=== PATIENT | female | born 1945 | race Caucasian/White ===

== ENCOUNTER 2022-05-26 08:16 | Day surgery (SDC) | payer MEDICARE, BC ==
[~2022-05-26] VITALS: Ht 167.6 cm; Wt 82.7 kg
[2022-05-26 08:27] VITALS: BP 167/76
[2022-05-26] MEDS ORDERED: ASPI-1265 PO (09:04)
[2022-05-26] MEDS ORDERED: OMEG-133 PO (09:05)
[2022-05-26] MEDS ORDERED: DIPH25CA83 PO (09:06)
[2022-05-26] MEDS ORDERED: QUIN10TA35 PO (09:06)
[2022-05-26] MEDS ORDERED: LEVO50TA PO (09:07)
[2022-05-26] MEDS ORDERED: ROSU40TA PO (09:08)
[2022-05-26] MEDS ORDERED: ZET10T PO (09:09)
[2022-05-26] MEDS ORDERED: ESOM40CA49 PO (09:09)
[2022-05-26] MEDS ORDERED: HYOS-13 PO (09:10)
[2022-05-26] MEDS ORDERED: ZINC100T2 PO (09:11)
[2022-05-26] MEDS ORDERED: CHOL400T57 PO (09:13)
[2022-05-26] MEDS ORDERED: MULT-1085 PO (09:13)
[2022-05-26] MEDS ORDERED: VITA1CAP PO (09:13)
[2022-05-26] MEDS ORDERED: MIDAZolam 1 MG/ML 5ML VIAL ONE (09:33)
[2022-05-26] MEDS ORDERED: fentaNYL/PF 50MCG/1 ML 2ML syringe ONE (09:33)
[2022-05-26] MEDS ORDERED: LIDOcaine Viscous 15ml cup ONE (09:34)
[2022-05-26 10:01] VITALS: BP 142/79
[2022-05-26 10:11] VITALS: BP 144/73
[2022-05-26 10:16] VITALS: BP 147/77
[2022-05-26 10:21] VITALS: BP 150/72
== END 2022-05-26 10:26 | disposition home or self-care (01) ==
LOC: GI LAB 08:16
PROVIDERS: ATTEND Internal Medicine Gastroenterology
DX: K22.2 Esophageal obstruction (principal); K29.70 Gastritis, unspecified, without bleeding; K31.89 Other diseases of stomach and duodenum; K44.9 Diaphragmatic hernia without obstruction or gangrene
CPT/HCPCS: 43239; 43450; J2250; J3010; J7030; Z7512; 43233; 88305; 99152; A4620

== ENCOUNTER 2023-05-22 12:30 | Inpatient (IN) | payer MEDICARE, BC ==
[~2023-05-22] VITALS: Ht 167.6 cm; Wt 85.9 kg
[~2023-05-22 12:30] MED LIST: ASPI-1265 PO; CHOL400T57 PO; DIPH25CA83 PO; ESOM40CA49 PO; EZET10TA7 PO; HYOS-13 PO; LEVO50TA PO; MULT-1085 PO; OMEG-133 PO; QUIN10TA35 PO; ROSU40TA PO; VITA1CAP PO; ZINC100T2 PO
--- NOTE | 2023-05-22 13:15 | NUR ---
P.A. NOTIFIED THAT PT WAS PLACED IN RM 17 @1315 AND NEEDS MSE. STERRAS
[2023-05-22 13:34] LABS: BASOPHILS % (AUTO) 0.5 % (0-1); EOSINOPHILS # (AUTO) 0.1 X10'3 (0-0.9); HEMATOCRIT 41.7 % (35.0-45.0); HEMOGLOBIN 13.9 g/dl (12.0-16.0); LYMPHOCYTES # (AUTO) 1.8 X10'3 (1.1-4.8); LYMPHOCYTES % (AUTO) 22.4 % (21-51); MEAN CORPUSCULAR HGB CONC 33.5 g/dL (33.0-36.5); MEAN CORPUSCULAR VOLUME 92.6 FL (78-98); MEAN PLATELET VOLUME 9.2 FL (7.4-10.4); MONOCYTES # (AUTO) 0.6 X10'3 (0-0.9); MONOCYTES % (AUTO) 7.2 % (2-12); NEUTROPHILS # (AUTO) 5.4 X10'3 (1.8-7.7); NEUTROPHILS % (AUTO) 68.9 % (42-75); PLATELET COUNT 314 X10'3 (140-440); RED CELL DISTRIBUTION WIDTH 13.5 % (11.5-14.5); WHITE BLOOD COUNT 7.8 X10'3 (4.5-11.0)
[2023-05-22 13:48] LABS: APTT 27 SECONDS (22-32); PROTHROMBIN TIME 10.8 SECONDS (9.0-12.0)
[2023-05-22 13:49] LABS: ALANINE AMINOTRANSFERASE 25 U/L (12-78); ALBUMIN 3.9 G/DL (3.4-5.0); ALBUMIN/GLOBULIN RATIO 1.2 (1.1-1.5); ALKALINE PHOSPHATASE 84 IU/L (46-116); ANION GAP 10 (8-16); ASPARTATE AMINO TRANSFERASE 15 U/L (10-37); BILIRUBIN,TOTAL 0.6 MG/DL (0.1-1.0); BLOOD UREA NITROGEN 23 MG/DL (7-18); BUN/CREATININE RATIO 29.1 (10.0-20.0); CALCIUM 9.6 MG/DL (8.5-10.1); CHLORIDE 107 MMOL/L (99-107); CREATININE 0.79 MG/DL (0.40-0.90); GLUCOSE 123 MG/DL (70-104); POTASSIUM 3.7 MMOL/L (3.5-5.1); SODIUM 141 MMOL/L (135-145); TOTAL CARBON DIOXIDE 24.5 MMOL/L (24-32); TOTAL PROTEIN 7.2 G/DL (6.4-8.2); eCRCL 55 ML/MIN; eGFR 70 ML/MIN
[2023-05-22] MEDS ORDERED: aspirin 81mg tab.chew PO ONE (14:15)
[2023-05-22] MEDS ORDERED: clopidogrel 300mg tablet PO ONE (14:15)
[2023-05-22] MEDS ORDERED: iohexol 350MG/ML 100ml bottle IV ONE (14:21)
[2023-05-22] MEDS ORDERED: mag hydrox/Alum hydrox/simeth 30ml oral suspension PO PRN (15:20)
[2023-05-22] MEDS ORDERED: morphine 2 MG/ML inj. syringe IV PRN (15:20)
[2023-05-22] MEDS ORDERED: ondansetron/PF 4mg/2ml inj IV PRN (15:20)
[2023-05-22] MEDS ORDERED: magnesium hydroxide 30ml (MOM) UD suspension PO PRN (15:20)
[2023-05-22] MEDS ORDERED: labetalol 20mg/4ml (5mg/ml) syringe IV ONE (15:30)
[2023-05-22 15:49] LABS: CHOLESTEROL 150 MG/DL (0-200); HDL CHOLESTEROL 50 MG/DL (35-60); LDL CHOLESTEROL 76 MG/DL (50-100); PRO BRAIN NATRIURETIC PEPTIDE 107 PG/ML (0-450); TRIGLYCERIDES 175 MG/DL (20-135)
[2023-05-22 17:10] LABS: BILIRUBIN,URINE NEGATIVE (Neg); CLARITY,URINE CLEAR (Clear); COLOR,URINE YELLOW (Yellow); GLUCOSE, URINE NEGATIVE (Neg); KETONES,URINE NEGATIVE (Neg); LEUKOCYTE ESTERASE ,URINE NEGATIVE (Neg); NITRITES, URINE NEGATIVE (Neg); OCCULT BLOOD,URINE TRACE-INTACT (Neg); PROTEIN,URINE NEGATIVE (Neg); UROBILINOGEN,URINE 0.2 E.U/dL (0.2-1.0)
[2023-05-22 17:13] LABS: UA COLLECTION TYPE CLN CATCH MIDSTREAM
[2023-05-22 17:14] LABS: BACTERIA,URINE NONE SEEN /HPF (Neg); MUCUS STRANDS NONE SEEN /LPF (Neg); RBC,URINE 0-2 /HPF (0-2); SQUAMOUS EPITHELIAL CELL,UR FEW /LPF (FEW); WBC,URINE NONE SEEN /HPF (0-4)
[2023-05-22 19:30] VITALS: BP 232/95; PULSE 79; RESP 10; TEMP 97.4; O2SAT 97
[2023-05-22 19:40] VITALS: BP 225/94
[2023-05-22 20:10] VITALS: BP 188/92
[2023-05-22] MEDS: docusate sod 100mg capsule PO SCH (21:00)
[2023-05-22 22:00] VITALS: BP 204/69; PULSE 75; RESP 15; TEMP 98.2; O2SAT 97
[2023-05-22] MEDS ORDERED: labetalol 20mg/4ml (5mg/ml) syringe IV PRN (22:30)
[2023-05-22] MEDS ORDERED: Melatonin 3mg tablet PO PRN (22:30)
[2023-05-23] VITALS (10 sets, daily range): BP systolic 170–222; BP diastolic 71–100; PULSE 77–90; RESP 14–16; TEMP 97.9–98.3; O2SAT 87–96
--- NOTE | 2023-05-23 06:07 | NUR ---
Patient in room ORTHO 4015. I have received report from Kimberly RN and had the opportunity to ask questions and assume patient care.
[2023-05-23 06:38] LABS: BASOPHILS % (AUTO) 0.6 % (0-1); EOSINOPHILS % (AUTO) 0.7 % (0-6); HEMATOCRIT 38.8 % (35.0-45.0); HEMOGLOBIN 13.1 g/dl (12.0-16.0); LYMPHOCYTES # (AUTO) 1.8 X10'3 (1.1-4.8); LYMPHOCYTES % (AUTO) 27.5 % (21-51); MEAN CORPUSCULAR HEMOGLOBIN 31.4 PG (27.0-31.0); MEAN CORPUSCULAR HGB CONC 33.8 g/dL (33.0-36.5); MEAN CORPUSCULAR VOLUME 92.9 FL (78-98); MEAN PLATELET VOLUME 9.1 FL (7.4-10.4); MONOCYTES # (AUTO) 0.5 X10'3 (0-0.9); MONOCYTES % (AUTO) 7.1 % (2-12); NEUTROPHILS # (AUTO) 4.1 X10'3 (1.8-7.7); NEUTROPHILS % (AUTO) 64.1 % (42-75); PLATELET COUNT 291 X10'3 (140-440); RED BLOOD COUNT 4.18 X10'6 (4.20-5.60); RED CELL DISTRIBUTION WIDTH 13.4 % (11.5-14.5); WHITE BLOOD COUNT 6.4 X10'3 (4.5-11.0)
[2023-05-23 07:07] LABS: ALBUMIN 3.6 G/DL (3.4-5.0); ANION GAP 10 (8-16); BLOOD UREA NITROGEN 13 MG/DL (7-18); BUN/CREATININE RATIO 17.8 (10.0-20.0); CALCIUM 9.4 MG/DL (8.5-10.1); CHLORIDE 106 MMOL/L (99-107); CREATININE 0.73 MG/DL (0.40-0.90); GLUCOSE 106 MG/DL (70-104); POTASSIUM 3.6 MMOL/L (3.5-5.1); SODIUM 142 MMOL/L (135-145); TOTAL CARBON DIOXIDE 26.4 MMOL/L (24-32); eCRCL 59 ML/MIN; eGFR 77 ML/MIN
[2023-05-23] MEDS: levoTHYROXINE 25mcg tablet PO SCH (07:17)
[2023-05-23] MEDS: docusate sod 100mg capsule PO SCH ×2 (07:17→20:34)
[2023-05-23] MEDS: ROSUVASTATIN CALCIUM 5 MG TABLET PO SCH (07:17)
[2023-05-23] MEDS: aspirin 81mg, enteric-coated 1 TAB TABLET.DR PO SCH (07:17)
[2023-05-23] MEDS: pantoprazole 40mg Tablet.DR PO SCH (07:17)
[2023-05-23] MEDS: ezetimibe 10mg tablet PO SCH (07:18)
[2023-05-23] MEDS: enoxaparin 40mg/0.4ml syringe SUBCUT SCH (07:19)
[2023-05-23] MEDS ORDERED: FLU VACC QS2023-24(6MOS UP)/PF 60 MCG/0.5 ML SYRINGE IM ONE (10:00)
[2023-05-23 12:07] LABS: HEMOGLOBIN A1C 5.5 % (4.5-6.2)
[2023-05-23] MEDS: clopidogrel 75mg tablet PO SCH (12:08)
[2023-05-23] MEDS: normal saline 1000ml 1,000 ML IV SCH (12:09)
--- NOTE | 2023-05-23 14:53 | NUR ---
Student documentation: I have reviewed and agree with assessments performed and documented by FAB Castano. Addendum: 05/23/23 at 1454 by Yvonne Hayes RN did not mean to have student documentation on this note Addendum: 05/23/23 at 1455 by Yvonne Hayes RN note not corrected without "student documentation"
--- NOTE | 2023-05-23 14:56 | NUR ---
FAB documentation: I have reviewed and agree with the physical assessment performed and documented by FAB Castano and relinquish all care to FAB Castano.
[2023-05-23] MEDS ORDERED: CHOL10008 PO (15:41)
[2023-05-23] MEDS ORDERED: MULT-969 PO (15:41)
[2023-05-23] MEDS ORDERED: ZINC100T2 PO (15:41)
[2023-05-23] MEDS ORDERED: CYAN250010 PO (15:41)
[2023-05-23] MEDS ORDERED: MAGN400C PO (15:46)
[2023-05-23] MEDS ORDERED: DILT-91 PO (15:46)
--- NOTE | 2023-05-23 17:37 | NUR ---
Patient is charging her phone at the nurses station
[2023-05-23] MEDS ORDERED: hydrALAZINE 20mg/ml inj. IV ONE (18:20)
--- NOTE | 2023-05-23 18:20 | NUR ---
Patient bp is 222/[address] Nix Resident. Unable to give labetalol on this floor. I advised Dr. Nix about this. Dr. Nix states that he is unable to get ahold of Dr. Juarez and has educational technology specialist on this. He is ordering a 1x dose of hydralize 25mg IV. He is putting the order in.
--- NOTE | 2023-05-23 18:41 | NUR ---
Problems reprioritized. Patient report given, questions answered & plan of care reviewed with Ivon SARGENT.
--- NOTE | 2023-05-23 18:50 | NUR ---
Patient in room ORTHO 4015. I have received report from FAB Blanco and had the opportunity to ask questions and assume patient care.
[2023-05-24 02:00] VITALS: BP 174/74; PULSE 74; RESP 16; TEMP 98; O2SAT 94
[2023-05-24 06:00] VITALS: BP 153/67; PULSE 76; RESP 14; TEMP 97.9; O2SAT 96
--- NOTE | 2023-05-24 06:20 | NUR ---
Patient in room ORTHO 4015. I have received report from Ivon Fairchild and had the opportunity to ask questions and assume patient care.
--- NOTE | 2023-05-24 06:34 | NUR ---
Problems reprioritized. Patient report given, questions answered & plan of care reviewed with ARIE Lamb.
[2023-05-24 06:49] LABS: BASOPHILS % (AUTO) 0.5 % (0-1); EOSINOPHILS # (AUTO) 0.1 X10'3 (0-0.9); EOSINOPHILS % (AUTO) 1.6 % (0-6); HEMATOCRIT 41.1 % (35.0-45.0); HEMOGLOBIN 13.7 g/dl (12.0-16.0); LYMPHOCYTES # (AUTO) 1.5 X10'3 (1.1-4.8); LYMPHOCYTES % (AUTO) 25.5 % (21-51); MEAN CORPUSCULAR HGB CONC 33.4 g/dL (33.0-36.5); MEAN CORPUSCULAR VOLUME 92.8 FL (78-98); MEAN PLATELET VOLUME 9.1 FL (7.4-10.4); MONOCYTES # (AUTO) 0.4 X10'3 (0-0.9); MONOCYTES % (AUTO) 7.5 % (2-12); NEUTROPHILS # (AUTO) 3.8 X10'3 (1.8-7.7); NEUTROPHILS % (AUTO) 64.9 % (42-75); PLATELET COUNT 275 X10'3 (140-440); RED BLOOD COUNT 4.43 X10'6 (4.20-5.60); RED CELL DISTRIBUTION WIDTH 13.6 % (11.5-14.5); WHITE BLOOD COUNT 5.9 X10'3 (4.5-11.0)
[2023-05-24 07:05] LABS: ALBUMIN 3.6 G/DL (3.4-5.0); ANION GAP 10 (8-16); BLOOD UREA NITROGEN 13 MG/DL (7-18); BUN/CREATININE RATIO 16.9 (10.0-20.0); CALCIUM 9.5 MG/DL (8.5-10.1); CHLORIDE 107 MMOL/L (99-107); CREATININE 0.77 MG/DL (0.40-0.90); GLUCOSE 109 MG/DL (70-104); POTASSIUM 3.7 MMOL/L (3.5-5.1); SODIUM 141 MMOL/L (135-145); TOTAL CARBON DIOXIDE 23.9 MMOL/L (24-32); eCRCL 56 ML/MIN; eGFR 73 ML/MIN
[2023-05-24 07:44] VITALS: RESP 14; O2SAT 96
[2023-05-24] MEDS: normal saline 1000ml 1,000 ML IV SCH (08:00)
[2023-05-24] MEDS: docusate sod 100mg capsule PO SCH (08:14)
[2023-05-24] MEDS: levoTHYROXINE 25mcg tablet PO SCH (08:14)
[2023-05-24] MEDS: pantoprazole 40mg Tablet.DR PO SCH (08:14)
[2023-05-24] MEDS: clopidogrel 75mg tablet PO SCH (08:15)
[2023-05-24] MEDS: ROSUVASTATIN CALCIUM 5 MG TABLET PO SCH (08:15)
[2023-05-24] MEDS: aspirin 81mg, enteric-coated 1 TAB TABLET.DR PO SCH (08:15)
[2023-05-24] MEDS: enoxaparin 40mg/0.4ml syringe SUBCUT SCH (08:32)
[2023-05-24] MEDS: ezetimibe 10mg tablet PO SCH (08:32)
[2023-05-24 10:00] VITALS: BP 184/99; PULSE 82; RESP 18; TEMP 97.4; O2SAT 94
[2023-05-24] MEDS ORDERED: CLOP75TA34 PO (10:27)
[2023-05-24] MEDS ORDERED: ATOR20TA66 PO (10:27)
[2023-05-24] MEDS ORDERED: ASPI-1071 PO (10:27)
--- NOTE | 2023-05-24 11:30 | NUR ---
Reviewed discharge instructions and medications with patient. Patient verbalized understanding. Patient independently dressed herself and gathered her belongings. Patient phoned her to pick her up. Patient was wheeled downstairs to be driven home by her .
== END 2023-05-24 12:45 | disposition home or self-care (01) | DRG 65 ==
LOC: ER 12:31 → ED HOLD 15:22 → ORTHO 4S 19:08
PROVIDERS: ADMIT Internal Medicine; ATTEND Internal Medicine
DX: I63.9 Cerebral infarction, unspecified (principal); N17.9 Acute kidney failure, unspecified; E03.9 Hypothyroidism, unspecified; E78.00 Pure hypercholesterolemia, unspecified; E78.5 Hyperlipidemia, unspecified; Z90.710 Acquired absence of both cervix and uterus; Z79.899 Other long term (current) drug therapy; Z88.2 Allergy status to sulfonamides; Z88.5 Allergy status to narcotic agent; Z90.49 Acquired absence of other specified parts of digestive tract
CPT/HCPCS: 36415; 70450; 70496; 70498; 70551; 71045; 80048; 80053; 80061; 81001; 83036; 83880; 85025; 85610; 85651; 85730; 87081; 93306; 97110; 97161; 97530; 99285; A6402; G0378; J1650; J3490; J7030; Q9967

== ENCOUNTER 2023-06-02 09:28 | Emergency (ER) | payer MEDICARE, BC ==
[~2023-06-02] VITALS: Ht 167.6 cm; Wt 85.6 kg
[~2023-06-02 09:28] MED LIST changes: +ASPI-1071 PO; -ASPI-1265 PO; +ATOR20TA66 PO; +CHOL10008 PO; -CHOL400T57 PO; +CLOP75TA34 PO; +CYAN250010 PO; +DILT-91 PO; -DIPH25CA83 PO; -HYOS-13 PO; +MAGN400C PO; -MULT-1085 PO; +MULT-969 PO; -ROSU40TA PO; -VITA1CAP PO
[2023-06-02 09:41] VITALS: TEMP 98.7
[2023-06-02] MEDS ORDERED: ondansetron 4mg rapidly disintigrating tab PO ONE (09:50)
[2023-06-02 10:23] LABS: BASOPHILS % (AUTO) 0.2 % (0-1); EOSINOPHILS # (AUTO) 0.1 X10'3 (0-0.9); EOSINOPHILS % (AUTO) 0.6 % (0-6); HEMATOCRIT 44.3 % (35.0-45.0); HEMOGLOBIN 14.6 g/dl (12.0-16.0); LYMPHOCYTES # (AUTO) 1.3 X10'3 (1.1-4.8); LYMPHOCYTES % (AUTO) 11.2 % (21-51); MEAN CORPUSCULAR VOLUME 93.8 FL (78-98); MEAN PLATELET VOLUME 9.9 FL (7.4-10.4); MONOCYTES # (AUTO) 0.5 X10'3 (0-0.9); MONOCYTES % (AUTO) 4.5 % (2-12); NEUTROPHILS # (AUTO) 9.9 X10'3 (1.8-7.7); NEUTROPHILS % (AUTO) 83.5 % (42-75); PLATELET COUNT 314 X10'3 (140-440); RED BLOOD COUNT 4.72 X10'6 (4.20-5.60); RED CELL DISTRIBUTION WIDTH 13.5 % (11.5-14.5); WHITE BLOOD COUNT 11.9 X10'3 (4.5-11.0)
[2023-06-02 10:40] LABS: ALANINE AMINOTRANSFERASE 14 U/L (12-78); ALBUMIN 4.1 G/DL (3.4-5.0); ALBUMIN/GLOBULIN RATIO 1.3 (1.1-1.5); ALKALINE PHOSPHATASE 86 IU/L (46-116); ANION GAP 11 (8-16); ASPARTATE AMINO TRANSFERASE 18 U/L (10-37); BILIRUBIN,TOTAL 0.6 MG/DL (0.1-1.0); BLOOD UREA NITROGEN 21 MG/DL (7-18); BUN/CREATININE RATIO 23.3 (10.0-20.0); CALCIUM 9.9 MG/DL (8.5-10.1); CHLORIDE 106 MMOL/L (99-107); GLUCOSE 121 MG/DL (70-104); LIPASE 35 U/L (16-77); POTASSIUM 4.1 MMOL/L (3.5-5.1); SODIUM 138 MMOL/L (135-145); TOTAL CARBON DIOXIDE 20.6 MMOL/L (24-32); TOTAL PROTEIN 7.2 G/DL (6.4-8.2); eCRCL 48 ML/MIN; eGFR 61 ML/MIN
[2023-06-02] MEDS ORDERED: normal saline 1000ml 1,000 ML IV ONE (10:50)
[2023-06-02] MEDS ORDERED: proCHLORperazine 10 MG/2 ml inj IV ONE (10:50)
[2023-06-02] MEDS ORDERED: morphine 4 MG/ML inj SYRINge IV ONE (10:50)
[2023-06-02] MEDS ORDERED: diphenhydrAMINE 50 mg/ml inj IV ONE (10:50)
[2023-06-02 12:34] LABS: BILIRUBIN,URINE NEGATIVE (Neg); CLARITY,URINE CLOUDY (Clear); COLOR,URINE YELLOW (Yellow); GLUCOSE, URINE NEGATIVE (Neg); KETONES,URINE 15 mg/dl (Neg); LEUKOCYTE ESTERASE ,URINE NEGATIVE (Neg); NITRITES, URINE NEGATIVE (Neg); OCCULT BLOOD,URINE LARGE (Neg); PROTEIN,URINE 30 mg/dl (Neg)
[2023-06-02 12:37] LABS: UA COLLECTION TYPE CLN CATCH MIDSTREAM
[2023-06-02 12:49] LABS: MUCUS STRANDS MODERATE /LPF (Neg); RBC,URINE TNTC /HPF (0-2); SQUAMOUS EPITHELIAL CELL,UR MANY /LPF (FEW)
[2023-06-02 12:50] LABS: BACTERIA,URINE FEW /HPF (Neg); TRANSITIONAL EPI CELLS,URINE FEW /HPF
[2023-06-02 12:51] LABS: WBC,URINE 0-4 /HPF (0-4)
[2023-06-02 12:52] LABS: CAL OXALATE CRYSTALS 1+ /HPF (NEGATIVE)
[2023-06-02] MEDS ORDERED: normal saline 1000ML IV soln IVB ONE (13:05)
[2023-06-02] MEDS ORDERED: ONDA4TAB12 PO (13:35)
[2023-06-02] MEDS ORDERED: IBUP-1985 PO (13:35)
[2023-06-02] MEDS ORDERED: FLO0.4C PO (13:35)
[2023-06-02] MEDS ORDERED: TRAM50TA2 PO (13:42)
[2023-06-02 14:03] VITALS: BP 195/102; PULSE 80; O2SAT 98
[2023-06-02 14:46] VITALS: RESP 18
== END 2023-06-02 14:48 | disposition home or self-care (01) ==
LOC: ER 09:29
DX: N13.2 Hydronephrosis with renal and ureteral calculous obstruction (principal); K59.00 Constipation, unspecified; E78.00 Pure hypercholesterolemia, unspecified; I10 Essential (primary) hypertension; Z88.2 Allergy status to sulfonamides; Z88.6 Allergy status to analgesic agent
CPT/HCPCS: 36415; 74176; 80053; 81001; 83690; 85025; 96361; 96374; 96375; 99285; J0780; J1200; J2270; J7030; J7040

== ENCOUNTER 2024-08-16 08:56 | Day surgery (SDC) | payer MEDICARE ==
[2024-08-16] VITALS (20 sets, daily range): BP systolic 114–192; BP diastolic 45–122; PULSE 60–79; RESP 12–18; TEMP 98.6; O2SAT 93–99
[~2024-08-16] VITALS: Ht 165.1 cm; Wt 83.6 kg
[~2024-08-16 08:56] MED LIST changes: +IBUP-1985 PO; +ONDA-243 PO
[2024-08-16 09:48] LABS: BASOPHILS % (AUTO) 0.6 % (0-1); EOSINOPHILS # (AUTO) 0.1 X10'3 (0-0.9); EOSINOPHILS % (AUTO) 1.4 % (0-6); HEMATOCRIT 40.6 % (35.0-45.0); HEMOGLOBIN 13.5 g/dl (12.0-16.0); LYMPHOCYTES # (AUTO) 1.7 X10'3 (1.1-4.8); LYMPHOCYTES % (AUTO) 28.6 % (21-51); MEAN CORPUSCULAR HEMOGLOBIN 31.3 PG (27.0-31.0); MEAN CORPUSCULAR HGB CONC 33.2 g/dL (33.0-36.5); MEAN CORPUSCULAR VOLUME 94.2 FL (78-98); MEAN PLATELET VOLUME 9.2 FL (7.4-10.4); MONOCYTES # (AUTO) 0.4 X10'3 (0-0.9); MONOCYTES % (AUTO) 7.2 % (2-12); NEUTROPHILS # (AUTO) 3.6 X10'3 (1.8-7.7); NEUTROPHILS % (AUTO) 62.2 % (42-75); PLATELET COUNT 309 X10'3 (140-440); RED BLOOD COUNT 4.31 X10'6 (4.20-5.60); RED CELL DISTRIBUTION WIDTH 13.6 % (11.5-14.5); WHITE BLOOD COUNT 5.8 X10'3 (4.5-11.0)
[2024-08-16] MEDS ORDERED: CARV-50 PO (09:55)
[2024-08-16] MEDS ORDERED: ASPI-1265 PO (09:55)
[2024-08-16] MEDS ORDERED: VALS320T17 (09:55)
[2024-08-16] MEDS ORDERED: AMLO10TA PO (09:55)
[2024-08-16] MEDS ORDERED: ROSU40TA89 (09:55)
[2024-08-16 10:06] LABS: APTT 26 SECONDS (22-32); PROTHROMBIN TIME 10.6 SECONDS (9.0-12.0)
[2024-08-16 10:17] LABS: ALANINE AMINOTRANSFERASE 23 U/L (12-78); ALBUMIN 3.7 G/DL (3.4-5.0); ALBUMIN/GLOBULIN RATIO 1.1 (1.1-1.5); ALKALINE PHOSPHATASE 82 IU/L (46-116); ANION GAP 7 (8-16); ASPARTATE AMINO TRANSFERASE 13 U/L (10-37); BILIRUBIN,TOTAL 0.8 MG/DL (0.1-1.0); BLOOD UREA NITROGEN 21 MG/DL (7-18); BUN/CREATININE RATIO 22.8 (10.0-20.0); CALCIUM 9.3 MG/DL (8.5-10.1); CHLORIDE 110 MMOL/L (99-107); CREATININE 0.92 MG/DL (0.40-0.90); GLUCOSE 107 MG/DL (70-104); POTASSIUM 4.1 MMOL/L (3.5-5.1); SODIUM 144 MMOL/L (135-145); TOTAL CARBON DIOXIDE 27.4 MMOL/L (24-32); eCRCL 45 ML/MIN; eGFR 59 ML/MIN
[2024-08-16] MEDS ORDERED: fentaNYL/PF 50MCG/1 ML 2ML syringe ONE ×2 (12:11→12:36)
[2024-08-16] MEDS ORDERED: gelatin sponge, absorbable (Gelfoam 12-7MM) sponge TP ONE (12:11)
[2024-08-16] MEDS ORDERED: midazolam 1 mg/ML 2ml injection ONE ×2 (12:11→12:36)
== END 2024-08-16 16:25 | disposition home or self-care (01) ==
LOC: SSTAY O 08:56
PROVIDERS: ATTEND Nurse Practitioner Family
DX: M89.8X7 Other specified disorders of bone, ankle and foot (principal); M79.89 Other specified soft tissue disorders; Z79.01 Long term (current) use of anticoagulants; Z79.899 Other long term (current) drug therapy
CPT/HCPCS: 20225; 36415; 77012; 80053; 85025; 85610; 85730; 88341; 88342; 99152; 99153; J2250; J3010; J7030; 88307; A4615